=== PATIENT | female | born 1955 | race Hispanic/Latino ===

== ENCOUNTER → 2022-01-10 | Outpatient (CLI) | payer OTHER | END | disposition home or self-care (01) | LOC: RAH 14:26 | PROVIDERS: ATTEND Family Medicine | DX: Z12.31 Encounter for screening mammogram for malignant neoplasm of breast (principal) | CPT/HCPCS: 77067 ==

== ENCOUNTER → 2023-01-26 | Outpatient (CLI) | payer OTHER | END | disposition home or self-care (01) | LOC: RAH 13:28 | PROVIDERS: ATTEND Family Medicine | DX: N63.11 Unspecified lump in the right breast, upper outer quadrant (principal) | CPT/HCPCS: 76641; 77066 ==

== ENCOUNTER 2023-11-11 05:36 | Day surgery (SDC) | payer MEDICARE ==
[2023-11-11] VITALS (10 sets, daily range): BP systolic 111–177; BP diastolic 51–69; PULSE 66–95; RESP 14–16
[~2023-11-11] VITALS: Ht 157.5 cm; Wt 122.5 kg
[~2023-11-11 05:36] MED LIST: CYCL-309 PO; DICL75TA5 PO; FURO40TA5 PO; METO200T49 PO; OMEP-420 PO; POTA-200 PO; ROSU10TA28 PO; VALS320T16 PO
[2023-11-11] MEDS: 0.9%NACL 1000ML 1,000 ML IV ONE (06:23)
[2023-11-11] MEDS ORDERED: PROPOFOL 10 MG/ML 20ML VIAL IV ONE (07:34)
== END 2023-11-11 08:52 | disposition home or self-care (01) ==
LOC: ENDO 05:36 → DAH 05:36 → ENDO 08:52
PROVIDERS: ATTEND Internal Medicine Gastroenterology
DX: K92.1 Melena (principal); K63.5 Polyp of colon; K57.30 Diverticulosis of large intestine without perforation or abscess without bleeding; K64.1 Second degree hemorrhoids; K31.89 Other diseases of stomach and duodenum; R10.13 Epigastric pain; B96.81 Helicobacter pylori [H. pylori] as the cause of diseases classified elsewhere; K21.9 Gastro-esophageal reflux disease without esophagitis; K44.9 Diaphragmatic hernia without obstruction or gangrene; K31.84 Gastroparesis; A04.8 Other specified bacterial intestinal infections; R19.4 Change in bowel habit; K64.9 Unspecified hemorrhoids; K76.0 Fatty (change of) liver, not elsewhere classified; E78.5 Hyperlipidemia, unspecified; I12.9 Hypertensive chronic kidney disease with stage 1 through stage 4 chronic kidney disease, or unspecified chronic kidney disease; N18.9 Chronic kidney disease, unspecified; M81.0 Age-related osteoporosis without current pathological fracture; E66.01 Morbid (severe) obesity due to excess calories; Z68.43 Body mass index [BMI] 50.0-59.9, adult; Z82.49 Family history of ischemic heart disease and other diseases of the circulatory system; Z82.5 Family history of asthma and other chronic lower respiratory diseases; Z80.9 Family history of malignant neoplasm, unspecified; Z83.3 Family history of diabetes mellitus; Z79.899 Other long term (current) drug therapy; Z79.1 Long term (current) use of non-steroidal anti-inflammatories (NSAID); Z98.890 Other specified postprocedural states
CPT/HCPCS: 43239; 45385; J7030 ×2; J2704; A4620; A4215; A4223; A7002; A4222; A4221; A4663; A4606; J3490

== ENCOUNTER → 2023-12-24 | Outpatient (CLI) | payer MEDICARE ==
[~2023-12-24] MED LIST changes: +METO200T37 PO; -METO200T49 PO
== END | disposition home or self-care (01) ==
LOC: RAH 07:11
PROVIDERS: ATTEND Internal Medicine
DX: R11.0 Nausea (principal); R68.81 Early satiety
CPT/HCPCS: 78264; A9541

== ENCOUNTER → 2024-12-20 | Outpatient (CLI) | payer MEDICARE ==
[~2024-12-20] MED LIST changes: -ROSU10TA28 PO; +ROSU10TA72 PO
--- NOTE | 2024-12-20 09:37 | HMCIMG ---
BONE DENSITOMETRY: HISTORY: AGE-RELATED OSTEOPOROSIS W/O CURRENT PATHOLOGICAL FRACTURE Comparison: none FINDINGS: BMD measured at AP spine L1-L4 is 0.996 g/cm2 with a T-score of -0.5 Bone density is up to 10% below young normal. This patient is considered normal according to WHO criteria. Fracture risk is low. BMD measured at Left Femoral Neck is 0.747 g/cm2 with a T-score of -1.1 Bone density is between 10 and 25% below young normal. This patient is considered osteopenic. Fracture risk is moderate. BMD measured at Left Femoral Total is 0.981 g/cm2 with a T-score of 0.1 Bone density is up to 10% below young normal. This patient is considered normal according to WHO criteria. Fracture risk is low. IMPRESSION: Osteopenia. Treatment and follow-up recommended.
== END | disposition home or self-care (01) ==
LOC: RAH 07:54
PROVIDERS: ATTEND Family Medicine
DX: M85.80 Other specified disorders of bone density and structure, unspecified site (principal); M81.0 Age-related osteoporosis without current pathological fracture
CPT/HCPCS: 77080